=== PATIENT | male | born 1965 | race Caucasian/White ===

== ENCOUNTER 2020-01-28 17:07 | Inpatient (IN) | payer OTHER ==
[~2020-01-28] VITALS: Ht 180.3 cm; Wt 81.2 kg
[2020-01-28 17:18] VITALS: BP 142/91
[2020-01-28 17:48] LABS: URINE BILIRUBIN NEGATIVE (Negative); URINE BLOOD NEGATIVE (Negative); URINE CLARITY CLEAR; URINE COLOR YELLOW; URINE GLUCOSE-RANDOM* NEGATIVE (Negative); URINE KETONES NEGATIVE (Negative); URINE LEUKOCYTES-REFLEX NEGATIVE (Negative); URINE NITRITE-REFLEX NEGATIVE (Negative); URINE PROTEIN (DIPSTICK) NEGATIVE (Negative); URINE UROBILINOGEN 0.2 E.U./dl (0.2-1.0)
[2020-01-28 17:51] LABS: AMP/METHAMP Negative (Negative); BARBITURATES Negative (Negative); BENZODIAZEPINES Negative (Negative); COCAINE Negative (Negative); METHADONE Negative (Negative); OPIATES Negative (Negative); PCP Negative (Negative)
[2020-01-28 17:58] LABS: ABSOLUTE NEUTROPHILS 7.2 thou/uL (1.4-8.2); BASOPHILS 0.7 % (0.0-2.0); EOSINOPHILS 1.7 % (0.0-3.0); HEMATOCRIT 38.4 % (42.0-52.0); HEMOGLOBIN 12.8 gm/dL (14.0-18.0); LYMPHOCYTES 25.8 % (24.0-44.0); MCH 29.5 pg (26.0-34.0); MCHC 33.5 g/dL (28.0-37.0); MCV 88.2 fL (80.0-100.0); MONOCYTES 9.1 % (1.0-8.0); PLATELET COUNT 339 thou/uL (150-400); POLYS 62.7 % (36.0-66.0); RBC 4.35 mil/uL (4.50-6.00); RDW 14.9 % (10.5-14.5); WBC 11.4 thou/uL (4.0-11.0)
[2020-01-28 18:06] LABS: ANION GAP 3 mmol/L (7-16); BUN 13 mg/dL (7-18); CALCIUM 8.9 mg/dL (8.5-10.1); CHLORIDE 97 mmol/L (98-107); CO2 31 mmol/L (21-32); CREATININE 0.9 mg/dL (0.7-1.3); GLUCOSE 96 mg/dL (74-106); POTASSIUM 3.8 mmol/L (3.5-5.1); SODIUM 131 mmol/L (136-145)
[2020-01-28 18:16] LABS: ALBUMIN 3.6 g/dL (3.4-5.0); LIPASE 135 U/L (73-393); SGOT 15 U/L (15-37); SGPT 17 U/L (30-65); TOTAL BILIRUBIN 0.3 mg/dL (0.2-1.0); TOTAL PROTEIN 7.5 g/dL (6.4-8.2); TROPONIN-I <0.06 ng/mL (<0.06)
[2020-01-28 20:21] VITALS: BP 139/93
[2020-01-28] MEDS ORDERED: CLONAZEPAM 1 MG1 M1 PO (20:53)
[2020-01-28] MEDS ORDERED: ATIVAN0.5 M1 PO (20:53)
[2020-01-28] MEDS ORDERED: DEPAKOTE SPRIN125 MG PO (20:54)
[2020-01-28] MEDS ORDERED: FOLIC ACID1 MG PO (20:55)
[2020-01-28] MEDS ORDERED: FLONASE 0.05%50 MCG NASAL (20:55)
[2020-01-28] MEDS ORDERED: GERI-TUSSI100 MG/5 M PO (20:57)
[2020-01-28] MEDS ORDERED: LEVETIRACETAM1000 MG PO (20:58)
[2020-01-28] MEDS ORDERED: MILK OF MA400 MG/5 M PO (20:59)
[2020-01-28] MEDS ORDERED: MUCUS ER1200 MG PO (21:00)
[2020-01-28] MEDS ORDERED: MYLANTA MAXIMU355 ML PO (21:01)
[2020-01-28] MEDS ORDERED: SEROQUEL 100 M100 M1 PO (21:02)
[2020-01-28] MEDS ORDERED: OMEPRAZOLE40 MG PO (21:02)
[2020-01-28] MEDS ORDERED: QUETIAPINE FUM200 MG PO (21:03)
[2020-01-28] MEDS ORDERED: VITAMIN B-1100 M2 PO (21:03)
[2020-01-28] MEDS ORDERED: TRAZODONE HCL50 MG PO ×2 (21:04)
[2020-01-28] MEDS ORDERED: SUPER THERAVIT1 EACH PO (21:05)
--- NOTE | 2020-01-29 02:07 | NUR ---
Patient admitted from [facility] ED under the care of Dr. Nix. Patient arrived to the ED from [facility] due to telling his roomate to hang himself, pocketing his medications, being verbally aggressive to staff and peers, presenting as paranoid and labile. Patient has the diagnosis of alcohol induced dementia, adjustment disorder, MDD and anxiety. Patient is currently a DNR status, Regular diet, Allergic to Sulfa. Nurse spoke with patients Dorene SOSA, niece. Verbal consent obtained. Patient has been admitted to facility since 04/2019. Patient had brain surgery 06/2019 due to sustaining subdural hematoma due to a fall which required 2 cristian holes. Niece reported that patient has atrophy to his brain and has been diagnosed with Korsakoff's disease. Niece states that patient was a chronic alcoholic with a history of several falls and has been involved in his care for the last 4-5 years. Reports that patient has a poor relationship with his sisters and last time that he called one "it turned out bad". Recommended that patient not use the phone due to it causing increased anxiety and agitation. Med rec completed and orders obtained for medications from Dr. Nix, as well as admission orders. Patient evaluated by hospitalist, Vladislav, GELACIO. Patient has a medical history of HTN, Anemia, GERD, chronic hematomas, and nystagmus. Once patient arrived to the unit, he was fairly cooperative with security staff being present. Appeared to be agitated that belongings were taken to be locked up. Patient had suspicious affect, labile mood. Patient upset that his room does not have a TV, he does not have a phone, he does not have a menu to call for "room service". Patient offered a box lunch which he became frustrated with. Once he ate one box lunch, he stated that it was good and requested a second one. Patient was compliant with taking HS medication and he was provided a second box lunch. Patient denied pain or discomfort. Alert and oriented to person and time. Denies SI/HI/AH/VH. 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 States that he does not have time to be in a hospital and wants to get back to work. 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 Spoke at lengths about "the farm" and truly believed that is where he came from. Denies knowing why he is in the hospital. States that he is anxious and depressed then gestured around the room. Nurse asked patient to ellaborate. Patient said, "look around me, I have nothing in common with these people". Patient introduced to a couple peers that he may enjoy speaking with, patient stated "I don't like them" then walked off to his room. No s/s of hallucinations present. Some paranoid observed during assessment. Patient continent of bladder. Needed re-directed from the nurses station a couple times and he made sarcastic remarks. No physical or verbal aggression observed. Patient was able to retire to bed at a reasonable hour and appears to be resting well at this time.
--- NOTE | 2020-01-29 10:15 | NUR ---
0700 ASSUMED CARE PF PATIENT, PATIENT AWAKE IN ROOM AT THAT TIME. 0725 PATIENT TO DAYRROM SITTING AT TABLE FOR BREAKFAST. PATIENT REQUEST COFFEE, ENGINEER INTERNSHIP ORIENTED PATIENT TO SELF SERVE COFFEE AREA. PATIENT AMB WITH STEADY GAIT. PATIENT REFUSES BREAKFAST STATES "THIS IS NOT A FARMERS BREAKFAST". PATIENT TO ROOM, BREAKFAST TAKEN TO ROOM AND PATIENT DOES NOT EAT. MEDICATIONS GIVEN WHOLE WITHOUT DIFFICULTIES. PATIENT STATES "I DO NOT KNOW WHY I AM HERE, NO ONE TELLS ME ANYTHING" PATIENT IS ALERT & ORIENTED X2. NO C/O PAIN. PATIENT STATES NO GOAL. PATIENT CONCERN IS THAT HE IS BEING CONTROLLED AND DICTATED. STATES "EVERYONE IS LYING AND DOES NOT KNOW WHAT IS GOING ON". PATIENT IS DELUSIONAL. DENIES SI/HI. ENGINEER INTERNSHIP SPOKE WITH MONICA FROM FACILITY AFTER VERIFYING CODE. CODE WAS GIVEN TO FACILITY BY DPOA AND LATER CONFIRMED WITH DPOA. DPOA ALSO CALLED AND UPDATED GIVEN. WILL CONTINUE TO OBSERVE
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
[2020-01-29 13:26] VITALS: BP 132/91
--- NOTE | 2020-01-29 19:30 | NUR ---
AFTER DINNER PATIENT WALKS TO ROOM WITH 2 BAGS OF POTATOE CHIPS AND DR MONTAGUE EDUCATES PATIENT ON NO FOOD TO THE ROOMS. PATIENT GETS AGITATED AND THROWS CHIPS OVER THE GLASS IN NURSES STATION. PATIENT TO ROOM AND CLOSES DOOR. SENIOR DESIGN ENGINEER IN ROOM TO EXPLAIN ABOUT THE DOOR NEEDING TO REMAIN OPEN. PATIENT DOES NOT RESPOND.
[2020-01-29 19:54] VITALS: BP 115/81
--- NOTE | 2020-01-30 03:47 | NUR ---
patient aox3 confused and forgetful at times. patient was agitated this shift at times.patient encouraged fluids. patient denied all psych issues. patient isolative this shift. fall precaution in place. patient in bed asleep at this time breathing regular and unlaboured.
--- NOTE | 2020-01-30 07:48 | NUR ---
0700 ASSUMED CARE OF PATIENT, PATIENT IN BED SLEEPING AT THAT TIME. 0730 PATIENT JUMPS OUT OF BED YELLING "GET THE FUCK OUT OF HERE". BEAD SUPERVISOR WAS ASSISTING PATIENTS ROOMMATE TO GET CLEANED UP. BEAD SUPERVISOR TELLS PATIENT THAT SOON WE ARE DONE WE WILL GET OUT. PATIENT BACK TO BED AND SITS THERE QUIETLY.
[2020-01-30 08:48] VITALS: BP 144/95
--- NOTE | 2020-01-30 19:24 | NUR ---
Care of patient assumed at 1915. Patient is in his room. Disgruntled and irritable. Demanding to change rooms. Calms quickly and is cooperative with assessment. A/O x4. HS, LS, BS all WNL. Denies pain. Denies SI/HI. Denies delusions. Compliant with HS meds. Irritable each time his room mate wakes up and bed alarm goes off.
--- NOTE | 2020-01-30 21:36 | H ---
[facility] [place] [address] HISTORY AND PHYSICAL Name: AMBER DELGADO Room #: 519A-A ADM IN M.R.#: [id number] Admission: 01/28/20 Attend Phys: Merrill Nix DO Discharge: Date of : 63 Report #: [id number] THIS REPORT FOR: cc: TU - No family physician/PCP FAM - No family physician/PCP Merrill Nix DO ~ CC: Merrill Nix [facility] physician/PCP DATE OF SERVICE: 01/29/2020 INPATIENT PSYCHIATRIC EVALUATION ATTENDING PSYCHIATRIST: Merrill Nix DO CLAM SORTER: Harinder Moran MD ADMITTING DIAGNOSIS: Major neurocognitive disorder due to chronic alcoholism with behavioral disturbance. REASON FOR ADMISSION: Increased agitation and refusing medication, confrontational behavior at care home, and paranoia. HISTORY OF PRESENT ILLNESS: This is a 54-year-old male, this is his first admission to the [facility]. He is referred from care home in [place], [place], called [facility] in [facility]. The care home itself sent us a referral yesterday. Apparently, they have tried to place him through psychiatric care in the last few days without success. The patient has been seen by [facility] provider, so I do not believe he is getting in-person care. Apparently, the patient's troubles began with most recently, with note stated 01/27/2020 where staff reports patient refuse morning medication, nurse attempted to get resident take medications, resident states there is no way in hell you can get him to take those medications. He states you are trying to drug me, so I cannot talk, will be contacting my foot miter operator and this place will be shutdown. The nurses educated him on importance and has continued to refuse medications. Resident got very agitated and want to call his foot miter operator in person, but does not want other people to hear his conversation stating "I know you guys are bugging all my phones." Other recent notes is the patient refusing meds, sleep disruption, again refusing medications, threatening to get his machine shorthand teacher, labile mood. He has made a threat stating that "I want to know who is going to be here, so I can be thinking the ways to deal with them the way they deserve". It sounds like the patient had a fall and subdural hematoma requiring cristian hole with evacuation in [address] [place] [address] HISTORY AND PHYSICAL Name: AMBER DELGADO Room #: 519A-A ADM IN [facility]#: [id number] Admission: 01/28/20 Attend Phys: Merrill Nix, DO Discharge: Date of : 63 Report #: [id number] 04/2019 and 05/2019, and then was sent to a nursing facility after that. There is a small subdural, which appears to be chronic on CT scan. Dr. Steiner had looked to it in the ER at the request of the ER licensed veterinary technician. The patient states, according to records, he was born in [place], [place], grew up in [place] and moved to [place], graduated high school. 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 He had a brief marriage in the mid 80s. The patient has had past history of depression, substance use disorder for alcohol, anxiety disorder. Apparently, he has not been drinking since he had his fall and subdural hematoma. The provider has been seen in the care home with Dorene Collins. Looks like his last visit was around 01/17/2020. There was a note dated 01/17/2020. The patient has been more aggressive lately requiring breakthrough Ativan. She had recommended 3 times a day Ativan. PCP has made recommendation for stopping Depakote due to possible cause of hyponatremia. Today, resident was resting in bed, talked for a while regarding this. He apparently you know he said he gets along with everyone and states that sometimes he is joking, he gets taken a long way. Apparently, he was moved to an Open and Lock Unit as the heavily demented patient were bothering him. He has been asking ways to elope, told them he had been kidnapped and complained a lot about his roommate, who staff reported is quite pleasant man. It looks like back in December, Telemedicine provider recommended trazodone 25 mg daily around 4:00 p.m. and 50 mg at bedtime. He has been refusing to let housekeeping stain off the wall from another patient urine. MEDICATIONS: In the facility will need to review them on the MR: Ativan 0.5 mg every 8 hours as needed for breakthrough agitation, clonazepam 1 mg by mouth 2 times a day for unspecified dementia, Depakote Sprinkles 125 mg 3 times a day, Flonase spray p.r.n., Keppra 1000 mg b.i.d., omeprazole, Seroquel 100 mg by mouth 2 times a day due to persistent psychosis and 200 mg at bedtime. He is getting thiamine. He is getting a couple other PRNs. ALLERGIES: SULFA DRUGS CAUSES VOMITING. 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 Drinks alcohol at the end of the day. He reported to me he was impotent due to Mumps as a child. He stated he gave away all documents to his niece Dorene. He states Shanon Reyes , not his niece, Dorene is his actual DPOA, so I have to sort that out LABORATORY DATA: Labs from here [facility], white count 11.4, H and H 12.8 and 38.4, platelet count 339. Chemistry: Sodium 131, potassium 3.8, chloride 97, bicarbonate 31, anion gap 3, BUN 13, creatinine 0.9, estimated GFR 88, glucose 96, calcium 8.9, total bilirubin 0.3, AST 16, ALT 17, alkaline phosphatase 102, ammonia level was 18 done this morning, troponin less than 0.06, total protein 7.5, albumin 3.6, lipase 135. Urinalysis was negative. [address] [address] HISTORY AND PHYSICAL Name: AMBER DELGADO Room #: 519A-A ADM IN M.R.#: [id number] Admission: 01/28/20 Attend Phys: Merrill Nix, DO Discharge: Date of : 63 Report #: [id number] Toxicology, alcohol less than 10. Urine drug screen was negative. Marijuana was negative. Head CT done in the ED showed bilateral bur holes in place. There is a small 3 mm evolving or chronic subdural hematomas felt present by the radiologist, volume loss with scattered periventricular microvascular ischemia. Followup CT is recommended, I will defer on that today. REVIEW OF SYSTEMS: We will use the one from the ER yesterday: CONSTITUTIONAL: Denies fever, chills, change in appetite, diaphoresis, weakness. Weight 78.93 kg, BMI 25.4. EYES: Denies visual change, blurred vision, decreased acuity, discharge, or double vision. HENT: Denies congestion, headache, dizziness, difficulty swallowing. Denies discharge, rhinorrhea or sore throat. RESPIRATORY: Denies cough, shortness of breath especially with exertion. CARDIOVASCULAR: He denies chest pain. Denies palpitations. Denies edema. Denies irregular heart rate, lightheadedness, orthopnea, shortness of breath or syncope. GASTROINTESTINAL: Denies abdominal pain, vomiting or diarrhea, poor appetite. GENITOURINARY: Denies hematuria, incontinence, pain, or frequency. MUSCULOSKELETAL: Denies back pain, muscle pain, joint pain, joint swelling, edema, leg pain, myalgias, neck pain. SKIN: Denies rash, bruising, abrasion, lacerations. NEUROLOGIC: Denies numbness, tingling or weakness, dizziness, headache, loss of consciousness, paresthesias, syncope, tremors. PSYCHIATRIC: As stated above in HPI. ENDOCRINE: No symptoms reported. HEMO AND LYMP: Denied. A 10-point review of systems otherwise negative in the ER. Labs and radiology already reviewed. PHYSICAL EXAMINATION: VITAL SIGNS: Today, temperature 36.6, pulse 75, respirations 18, BP 139/93, O2 sat 99%. MUSCULOSKELETAL: Normal gait and station. The patient has poor dentition, wearing jeans and T-shirt. MENTAL STATUS EXAMINATION: This is a well-developed, fairly nourished male, appearing older than stated age. Attention limited. Concentration limited. Speech: Normal rate and tone. Thought Process: Linear and goal directed. Thought Content: Focused on not living in a care home and not having Dorene DPOA. Has psychomotor agitation and has some psychomotor retardation. Denied suicidal or homicidal ideation, auditory, visual, or tactile hallucinations. Denied nightmares or flashbacks. [facility] [address] [place] [address] HISTORY AND PHYSICAL Name: AMBER DELGADO Room #: 519A-A ADM IN [facility].#: [id number] Admission: 01/28/20 Attend Phys: Merrill DanialSangeeta Nix, DO Discharge: Date of : 63 Report #: [id number] Mental Status examination was performed, score was 20/30. He has only one correct out of 3 orientation questions, 3/3 on the money management question, 3/3 on the verbal fluency, 3/5 on 5-item recall, 2/2 for reverse digit span, 2/4 for clock drawing, 2/2 on visual spatial, 4/8. Insight limited. Judgment limited. Fund of knowledge below average. FORMULATION: A 54-year-old male sent from the [facility] in [place] for medication noncompliance, paranoia, agitation, major neurocognitive disorder due likely to long-term effects of alcoholism as well as traumatic brain injury with behavioral disturbance. MEDICAL COMORBIDITIES: Include the following, history of folate and thiamine deficiency, history not well documented, Wernicke-Korsakoff psychosis, seizure disorder, unclear degree gastroesophageal reflux disease, subdural hemorrhage, hypertension, history of tobaccoism. I am unclear if he is smoking at care home. The patient is a DNR. PLAN: Evaluate, stabilize, obtain collateral. With regard to his current medications, I made a couple changes already so thiamine 100 mg a day for supplementation, Seroquel increased to 150 mg at 9:00 a.m. and 3:00 p.m. He is on folic acid, multivitamin, Protonix 40 mg daily as needed, Seroquel increased to 250 mg, Keppra to 1000 p.o. b.i.d., Depakote I increased from 125 t.i.d. to 275 t.i.d., we will do level in several days; his clonazepam 0.5 mg p.o. b.i.d., but plan to discontinue that in another day or so if I do not think it is good given his dementia. Time spent on interview, evaluation, review of records is at least 60 minutes, greater than 50% of time spent on counseling and coordination of care. STRENGTHS: He is insured. He has a DPOA. He has a placement. WEAKNESSES: Dementia at a young age with poor insight, poor dentition. <ELECTRONICALLY SIGNED> By: Merrill Nix DO 01/30/20 [id number] Merrill Nix DO /nt
[2020-01-31 06:26] LABS: HEMOGLOBIN 13.5 gm/dL (14.0-18.0); MCH 29.6 pg (26.0-34.0); MCHC 32.9 g/dL (28.0-37.0); RBC 4.55 mil/uL (4.50-6.00); RDW 15.3 % (10.5-14.5); WBC 10.6 thou/uL (4.0-11.0)
[2020-01-31 06:43] LABS: CALCIUM 8.8 mg/dL (8.5-10.1); CREATININE 0.9 mg/dL (0.7-1.3); MAGNESIUM 2.1 mg/dL (1.8-2.4); POTASSIUM 3.9 mmol/L (3.5-5.1)
[2020-01-31 07:47] VITALS: BP 136/96
--- NOTE | 2020-01-31 10:04 | NUR ---
0700 ASSUMED CARE OF PATIENT, PATIENT ASLEEP IN BED AT THAT TIME. PATIENT OUT TO DAYROOM FOR BREAKFAST. DENIES SI/HI, NO C/O PAIN. PATIENT UPSET DUE TO CURRENT DPOA ON FILE FOR HIM. PATIENT CONTINUES TO WRITE NOTES IN REGARDS TO WHOM TO CONTACT FOR VERIFICATION OF HIS TRUE DPOA. PATIENT RETURNS TO ROOM AFTER MEALS FOR HE FEELS HE DOES NOT BELONG AROUND THE OTHER PATIENTS. MEDICATION TAKEN WHOLE, PRINT ROOM WORKER CONTINUED TO ASK QUESTIONS AND NOTICED HE HAD NOT SWALLOWED ALL MEDDS. PRINT ROOM WORKER ASKS PT TO PLEASE FINISH SWALLOWING MEDS AND PATIENT COMPLIES. PATIENT TO NURSES STATION SEVERAL TIME THIS AM REGARDING HIS DPOA. PRINT ROOM WORKER ASSURED PATIENT THAT SW AND WOULD ADDRESS THIS MATTER. WILL CONTINUE TO OBSERVE
--- NOTE | 2020-01-31 13:31 | NUR ---
FRED and Dr. Nix received a call from Edith Dyer with [facility] office at [phone]. She is involved at pt's wishes. She gave background hx on the facility. She also stated her first known documentation that suggests pt's dx is dementia occurred in 05/2019. FRED reviewed pt's DPOA docs and saw the last revision he made before 05/2019 is in February 22 2019 in which he lists Edinson Dawn as 1st DPOA, Dorene Aleman as 2nd DPOA, and Merrilldede Dawn as 3rd. FRED asked Edith if she had either a phone number for Edinson or a letter from him stating he rescinds his position as DPOA; she did not have either. She did give her email of . FRED sent an email to Edith with her contact information. FRED contacted [facility] at [phone] and spoke to Geovanna and Surinder. FRED asked if Jazmin is indeed an admin of the facility and was told she is, but is on leave at the moment and is in the process of being terminated. FRED provided an update that Jazmin has contacted [facility] staff asking for reports about pt and spoke to the doctor about pt. Surinder advised that the unit place a restriction that even staff are to provide pt's 4 digit code to receive any information. They were given this code by Dorene. Surinder gave FRED the fax number of [phone] to fax updates. Geovanna contacted with a phone number for Edinson of [phone]. FRED contacted Edinson. He confirmed that he would prefer Dorene to be DPOA as he does not want the responsibility. He said he provided [facility] a document stating such. He will fax this to when he finds the document.
--- NOTE | 2020-01-31 18:39 | NUR ---
PATIENT SPOKE WITH HIS SISTER JANEE Wilkinson PHONE # [phone] THIS EVENING. PATIENT STATES "SHE WILL GET THE BALL ROLLING, WE JUST NEED A OUTSIDE SOURCE TO DO THAT". PATIENT CONTINUES TO COMMENT "JACQUELINE IS NOT MY DPOA THAT WAS DESOLVED". WILL CONTINUE TO OBSERVE.
[2020-01-31 19:59] VITALS: BP 148/96
[2020-01-31 22:00] VITALS: BP 148/96
--- NOTE | 2020-02-01 00:14 | NUR ---
Assumed care of patient this pm shift. Patient in good spirits sitting in the mileu with peers. Patient is alert and oriented x3. Patient denies pain. Patient denies hi/si. Patient can take medications whole but declined them this evening stating that he is afraid of side effects. Patient is ambulatory and walks with an even gait. Patient is a falls risk and has a yellow shirt on. Patients affect is suspicious. Patients assessment shows clear breath sounds, active bowel sounds, and s1 s2 heard with auscultation. We will continue to monitor patient per hospital protocol.
[2020-02-01 08:53] VITALS: BP 132/86
--- NOTE | 2020-02-01 10:43 | NUR ---
0700 ASSUMED CARE OF PATIENT, PATIENT IN BED SLEEPING AT THAT TIME. PATIENT AMB WITH STEADY GAIT TO DAYROOM FOR BREAKFAST THE RETURN TO ROOM. MEDICATION TAKEN WHOLE, WHEN MEDICAL CENTER DIRECTOR ASKS PATIENT TO OPEN MOUTH MEDICAL CENTER DIRECTOR OBSERVED PATIENT CHEEKING MEDS. MEDICAL CENTER DIRECTOR ASKED PATIENT TO PLEASE SWALLOW AND AFTER PATIENT COMPLAINED AND ARGUED PATIENT SWALLOWED MEDICATION AFTER 4 TIMES OF OBSERVING FOR MEDS IN PATIENTS MOUTH. MEDICATION WAS FOUND IN PATIENTS BED YESTERDAY BY STAFF. PATIENT REMAINS IN BED WITH EYES CLOSED. WILL CONTINUE TO OBSERVE.
--- NOTE | 2020-02-01 11:05 | NUR ---
RECIEVED CALL FROM HARMEET LAMINE [phone]. EMERGENCY TECHNICIAN DID NOT GIVE ANY INFO REGARDING PATIENT. HARMEET STATED "I WAS NOTIFIED BY AMBER'S SISTER THAT AMBER TOLD HER TO CALL ME AND HELP GET HIM OUT". "I AM THE DPOA, THERE IS SOMEONE ELSE CURRENTLY DPOA AND WE ARE CURRENTLY FIGHTING TO GET THAT DPOA REMOVED". EMERGENCY TECHNICIAN ASKED, YOU ARE NOT THE DPOA? HARMEET STATED "NO, NOT YET". EMERGENCY TECHNICIAN ENDED THE CONVERSATION AGAIN EXPLAINING, DUE TO HIPPA I CAN NOT DISCUSS ANYTHING REGARDING THE PATIENT.
--- NOTE | 2020-02-01 12:01 | NUR ---
FRED provided Dorene an update on pt. She has requested that pt be put on a no phone restriction. FRED relayed this information to Dr. Villegas who said he will put this order in. FRED updated pt's nursing staff. FRED team will continue to follow pt during his stay on this unit.
--- NOTE | 2020-02-01 14:57 | NUR ---
PATIENTS DOOR CLOSED, AMMONIA WORKER ASKED PATIENT TO PLEASE NOT SHUT DOOR. PATIENT RESPONDS WITH " I CAN DO WHAT I WANT". PATIENT TAKES MEDICATION AND SWALLOWS MEDS NO CHEEKING NOTED. ONE MINUTE AFTER TALKING TO PATIENT , PATIENT SHUTS DOOR AGAIN. PATIENT YELLS STATING "I DO NOT WANT TO LISTEN TO THAT YELLING" (OF ANOTHER PATIENT). AMMONIA WORKER EXPLAINED TO PATIENT DOORS CAN NOT BE CLOSED. PATIENT STATES "MY MICROCHIP SPECIALIST WILL FIX THIS, AND YOUR ON THE LIST". WILL CONTINUE TO OBSERVE.
[2020-02-01 20:34] VITALS: BP 119/85
--- NOTE | 2020-02-02 05:19 | NUR ---
02-01-20 CARE TRANSFERED 1914. 1929 PT SITTING ON BED WITH EYES OPEN, PT AAOX3, SKIN W/D, VSS, RR EVEN AND NONLABORED ON RA; PT PRESENTED ANGRY BUT WAS COOPERATIVE DURING NURSING ASSESSMENT. DURING MEDICATION ADMIN, PT BED WAS REPOSITION TO HIGH FOWLERS POSITION PT WAS PRESENTED ANGRY BUT BECAME AGITAGED AND SPEAKING ANGRY ABOUT HOW HE DOES NOT NEED THESE MEDICATION, EACH MEDICATION WAS REVIEWED AND DISCUSSED THE BENEFITS, PT THEN STATED "you people are trying to kill me, I only will take medication from my [place] pharmacist, I don't trust anyone here. Medication have adverse effects." WHEN REJUSTING BED FOR PT COMFORT PT STATED "just leave it alone, I don't need your help." 2334 PT CAME OUT AND REQUESTED HIS PAPERS BE STAPLED AND DENTAL INTERN INFORMED PT THAT WE COULD NOT DO THIS, PT STATED "I am going to nam this place and all of you." NOTED PT RETURNED TO ROOM. APPROXIMATELY 0000 DURING NURSING ROUNDS NOTED PT EYES OPEN, AND ASKED IF HE WOULD LIKE BED READJUSTED, PT ALLOWED SLIGHT ADJUSTMENT. ZERO S/S OF ACUTE EMOTIONAL AND MEDICAL DISTRESS THROUGHOUT NURSING ROUNDS. WILL CONTINUE TO MONITOR PER [facility] PROT[facility].
--- NOTE | 2020-02-02 10:32 | NUR ---
Assumed care 0700. 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 Ediphone Operator returned belen's call. She reported patient is a hoarder of linens, papers, and other objects. he has lived [facility]. Niece says he is not a stallings and suggests just redirect him off the subject and not confront him or deny his story as he gets really agitated.
[2020-02-02 17:13] VITALS: BP 131/92
--- NOTE | 2020-02-02 17:50 | NUR ---
Pt. was med compliant with nurse checking his mouth after each med pass and following him to outside the bathroom door to listen for any wretching. None discovered. He is delusional/confabulational with telling this nurse that he had to be discharged to go home to cut his wheat. He was disappointed that noone here was able to talk with him about the wheat futures. He was afraid that the [place] would be flooded with water and be ruined as the wheat crop was his income. His DPOA Dorene clarified that he was not a stallings, that he has lived in a skilled nursing since last fall. He is requesting a list of his medications to show his motion designer as he says each med has its side effects and he doesn't want his personality changed.
--- NOTE | 2020-02-02 18:00 | NUR ---
Patient requested and was seen by the hospital stone rubber this afternoon. He did not attend groups-does not see any value in attending groups.
--- NOTE | 2020-02-02 19:24 | NUR ---
Care of patient assumed at 1915. Patient is asleep in bed at this time. Patient awakens at 2030 and is cooperative with assessment. A/O x 3. Denies pain, concerns, or new goals. Still wants to discharge. 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 HS, LS, BS all WNL for patient. Reports LBM today. Compliant with HS meds. Asleep shortly after meds administered.
[2020-02-02 20:33] VITALS: BP 107/71
[2020-02-03 07:53] VITALS: BP 113/66
--- NOTE | 2020-02-03 09:45 | NUR ---
Assumed care 0700. Patient was called into dayroom for breakfast x 3, continued to want to stay in bed. Says he can't sleep due to roommate getting up during the night with the bed alarm going off. Again patient was encouraged to let night staff know when he was not alseep as they report he slept 11 hours last night. He came out for late breakfast. Food was reheated. He tends to want to be an adversary with authority figures. 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 He continues to deny that Dorene glover is his DPOA. He defies unit rules and has been requested not to bring coffee into his room, to drink it in the dayroom.
--- NOTE | 2020-02-03 18:30 | NUR ---
Due to patient having a history of spitting out his pills he was requested to use the toilet before getting his AM meds which he did and was evidenced by urine and toilet paper in the toilet unflushed. He was given pears to eat prior to his meds which he took with a comment about his concerns that his meds were poison, would change his personality, and that he cared for his mother and it took a long time to get her meds right. He does not specifiy what he perceives are any deleterious efects from his current meds. Right after he took his meds this adjusto writer operator was talking to a doctor out in the downing and the patient swiftly went into the bathroom and flushed the toilet. It is believed that he coughed up his pills as less than 5 minutes before he had urinated in the toilet. His medical doctor was advised of this and the med student for psychiatry was also informed. The patient became quite angry stating he did not flush meds down toilet and that his test developer would be notified. He did come out of room for lunch and dinner. After dinner he was observed getting ice cream out of the freezer. He was requested to ask staff for such snacks. He became angry stating that our conversation was being recorded and his test developer would be notified. This adjusto writer operator spoke with Dorene SOSA who says there should be noone calling him and that she is the only one he should be talking to on the phone. He is not to be calling out on the phone.
--- NOTE | 2020-02-03 19:24 | NUR ---
Care of patient assumed at 1915. Patient is laying in bed. Calm, pleasant, and cooperative upon approach. 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 Denies pain. Denies SI/HI. Denies needs or concerns. States his only goal is to go home. Compliant with HS meds. Sleeping shortly after.
[2020-02-03 19:37] VITALS: BP 112/70
[2020-02-04 06:38] VITALS: BP 99/65
[2020-02-04 08:00] VITALS: BP 99/65
--- NOTE | 2020-02-04 09:05 | NUR ---
FRED received a vm from [place] asking for an update. FRED returned her call. No answer. FRED left [facility]. FRED will continue to follow pt during his stay on this unit.
--- NOTE | 2020-02-04 10:30 | NUR ---
Assumed care 0700. Returned Dorene's call earlier before this nurse could start her meds. Update given. Erick was allowed to sleep longer. For the third day in a row he was informed that he should wave at staff when they came in to check on him. He claims roommate keeps him awake with his bed alarm going off periodically during thenight.
--- NOTE | 2020-02-04 18:30 | NUR ---
Says he looks out the to cope with the milieu noise of various patients screaming without cause. He has been told that if he refuses or spits out certain medication he will be given an injection. Some conversation of possible discharge next week if behavior is appropriate, and is med compliant. Dorene IAN was given that information in second conversation today. Also informed that yes he was hoarding food, sugars, silverware in the side table. Items removed and trashed. Patient reminded that he was not to bring any food stuffs into his room. For the third day in a row he has asked if the structure he sees in the distance is [employer]? He was informed that was a [employer] business. 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 In 99% of conversations withthis nurse patient has been hostile, litigenous threatening for no reason, angry, unhappy. He believes meds are poisoning him and fears side effects. DPKARMA and patient were informed tht all of the staff is observant of all the patients and that staff confers with other patients' nurses if any concerns are observed and those concerns are addressed with the appropriate doctors.
[2020-02-04 20:02] VITALS: BP 120/74
--- NOTE | 2020-02-05 03:06 | NUR ---
Assumed care on 02/04/20 @ 19:15, in bed, awake alert oriented x 3. Not able to name hospital. Cooperated with assessment, HRRR, Lungs CTA, ABD N x 4 q. Reports BM 02/04/20. Itiching healed scar on right arm moisturized with lotion. Compliant with medicaiton. 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 Discussed cattle, crops and water on farm. Reports his only pain is a broken heart. 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 Says I'll never get over that. Sleeping as of this writing, bed in low position, bed alarm set, will continue to monitor.
[2020-02-05 07:35] VITALS: BP 112/67
[2020-02-05 09:54] VITALS: BP 112/67
--- NOTE | 2020-02-05 10:52 | NUR ---
PT WAS IN DAY ROOM WHEN I ARRIVED ON THIS UNIT. Javier LOOKED VERY ANGRY AND INTENSE,WHEN I WENT TO GIVE HIM HIS MEDICATIONS. PT C/O BEING LOCKED UP, DEMANDING A WRITTEN LIST OR EVER MEDICATION HE IS TAKING. Micheal DID MEDICATIONS WITH OUT ANY RESISTANCE THIS AM. LUNGS CLEAR , X2, PEDAL PULSE STRONG, BOWEL SOUND ACTIVE AND LAST BM WAS THIS AM . PT REPORTED LG FORMED BM. MICHEAL STAYS IN DAY ROOM FOR MOST OF THE DAY , BUT DOES NOT PARTICIPATE IN GROUP. MICHEAL'S POWER OF CATERPILLAR OPERATOR CALLED AND WOULD LIKE TO SPEAK TO HIS SOICAL WORKER WHEN POSSIBLE, REGARDING PLAN OF CARE.
--- NOTE | 2020-02-05 11:49 | NUR ---
SW spoke to pt's belen Catherine who requested an update on patient's care plan. SW reviewed notes and provided update.
--- NOTE | 2020-02-05 19:18 | NUR ---
Care of patient assumed at 1914. Patient sitting at a table in the day room. Pleasant upon approach. 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 Denies pain. Denies SI/HI. No concerns stated. States his only goal is to be discharged and go back to the farm. HS, LS, BS all normal for patient. Compliant with HS meds. 30 minutes after taking meds, patient reports heartburn. Mag hydroxide given. Patient retires to bed at 2229.
[2020-02-05 19:55] VITALS: BP 117/81
[2020-02-06 09:05] VITALS: BP 133/90
--- NOTE | 2020-02-06 12:58 | NUR ---
PATIENT COMPLIANT WITH MEDICATION BUT RELUCTANT TO TAKE. WAS IRRITATED STATING THAT THEY KEPT HIM AWAKE ALL NIGHT. PATIENT HAS GOOD APPETITE. AMBULATES INDEPENDENTLY. MAKES NEEDS KNOWN. SOCIAL WITH PEERS DENIES S/I OR H/I - PLEASED TO DISCHARGE TOMORROW BUT NOT HAPPY WHERE HE IS GOING. PATIENT CARETAKING OF FEMALE PEERS.
--- NOTE | 2020-02-06 19:15 | NUR ---
Care of patient assumed at 191. Patient is sitting in day room conversing with a peer. Pleasant and cooperative upon approach. A/O x 4. 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 Denies pain. Concern and goal revolve around getting back to the farm. HS, LS, BS all WNL. Reports last BM today. Compliant with HS meds, then reitres to bed at 0. DPOA called to check on patient. Unsure of planned discharge date, assuming it will be decided tomorrow based on medication compliance over the weekend.
[2020-02-06 19:30] VITALS: BP 128/83
[2020-02-07 07:46] VITALS: BP 94/68
[2020-02-07 08:20] VITALS: BP 94/68
--- NOTE | 2020-02-07 08:26 | NUR ---
PT UP IN DINING ROOM. PT LUNGS CLEAR. PT DENIES ANY PAIN. PT TOOK MEDS THIS AM WITHOUT ANY ISSUES. PT LBM 02/05. NO SIGNS OF IRRITATION FROM THE PATIENT. PT STILL TALKING ABOUT WORKING ON THE FARM.
--- NOTE | 2020-02-07 15:14 | NUR ---
Nutrition: Assessed due to LOS. Pt admit to [facility] unit with AMS, aggressive behavior at MO. Eating 100% of most meals on regular diet. Good appetite per nsg notes. Last BM 02/05. Meds include MVI, folic acid, thiamine. PMH: ETOH, depression, substance abuse, SDH. Some minor weight fluctuations, will follow trends. Noted pt is a possible discharge today if he can be compliant with his medications. Consider low nutrition risk.
--- NOTE | 2020-02-07 19:18 | NUR ---
Care of patient assumed at 1915. Patient is sitting in day room at a table conversing with a peer. Pleasant and cooperative with assessment. Denies pain. A/O x 4. 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 HS, LS, BS all WNL. Compliant with HS meds. Goes to bed shortly after, only to come back out demanding his phone so that he can call for a ride in the morning. It is explained to patient that the discharge plan is for him to return to [place], and that transportation will be arranged. Patient goes on at length about how he is "being screwed" and that his niece is not his DPOA. He states he can prove it, but "we" won't let him as he cannot use the phone except for calls to/from DPOA. This nurse informs patient that 2200 is not the appropriate time to be addressing these concerns and that he needs to be bringing these concerns up when the doctor and social and political studies professor are here, as he is demanding that the windows architect he insists signed the orders rescinding the DPOA is not reachable at 2200. able to be contacted
[2020-02-07 19:52] VITALS: BP 131/88
[2020-02-08 08:30] VITALS: BP 123/89
--- NOTE | 2020-02-08 08:34 | NUR ---
PT IN DINING ROOM. PT DENIES ANY PAIN. PT ORIENTED TO SELF AND PLACE. 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 PT HAS FARM IN [place]. PT GOING TO DISCHARGE TODAY. PT HAS A COUGH WITHOUT SPUTUM. PT STATED HE HAS THICKENS TO BACK OF HIS THROAT. PT DRINKING COFFEE. PT ABD IS ROUND, HE STATED HE IS NOT ON FARM WALKING AROUND AND GAINED WEIGHT.
[2020-02-08 08:36] VITALS: BP 123/89
--- NOTE | 2020-02-08 09:32 | NUR ---
On 02/07/20 FRED received multiple messages from Dorene stating she has concerns about pt discharging from the hospital on 02/07/20. FRED provided an update which included pt having appropriate social behaviors and medication compliance. FRED discussed Dorene's expectation for hospitalization as it relates to pt's level of functioning. Dorene was not pleased with this explanation. FRED arranged for Dorene to speak to Dr. Nix who his clinical justification for discharge. Dorene reluctantly accepted this information. FRED arranged for Katarina with [facility] to speak to Dr. Nix regarding pt's discharge. Katarina stated they can pick patient up at 10:30 am on 02/08/20. Treatment team was notified.
--- NOTE | 2020-02-08 09:54 | NUR ---
FRED received a call from Katarina with [facility] requesting an update since yesterday. FRED provided updated via medical record and informed her his discharge summary would be faxed once it was completed. It will also be sent with pt. Pt will discharge today at 10:30 am. [facility] is providing transportation. Katarina was instructed to have her staff call the nurses station when they arrive. Nursing staff will bring pt to their vehicle.
[2020-02-08] MEDS ORDERED: DEPAKOTE SPRIN125 MG PO (10:10)
[2020-02-08] MEDS ORDERED: SEROQUEL 100 M100 MG PO ×2 (10:11→10:12)
[2020-02-08] MEDS ORDERED: PROTONIX40 M1 PO (10:12)
--- NOTE | 2020-02-08 11:00 | NUR ---
PT TOOK SHOWER GETTING READY TO DISCHARGE. 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 PT STATED HE WAS GOING TO KEEP HIS OPINIONS TO HIMSELF. PT REFUSED TO FILL OUT SURVEY. PT HAS BEEN DRINKING COFFEE. GAIT IS STEADY.
--- NOTE | 2020-02-08 11:38 | NUR ---
PT DID COMMENT TO NURSE THAT WHEN HE GETS HOME HE WOULD LIKE TO SIT ON HIS PORCH AND HAVE A BEER AND A CIG.
--- NOTE | 2020-02-08 11:47 | NUR ---
PT LEFT VIA AMBULATION TO CAR. PT VOIDED BEFORE HE LEFT FOR THE 2 HOUR RIDE.
--- NOTE | 2020-02-08 12:05 | NUR ---
GAVE REPORT TO JOSE EDUARDO BEE AT [facility].
--- NOTE | 2020-02-08 12:14 | NUR ---
[facility]
== END 2020-02-08 11:37 | DRG 884 ==
LOC: ER 17:07 → SBH 19:53
PROVIDERS: Internal Medicine; Physician Assistant; ADMIT Psychiatry & Neurology Psychiatry; ATTEND Psychiatry & Neurology Psychiatry
DX: F01.51 Vascular dementia, unspecified severity, with behavioral disturbance (principal); F04 Amnestic disorder due to known physiological condition; F10.20 Alcohol dependence, uncomplicated; K21.9 Gastro-esophageal reflux disease without esophagitis; I10 Essential (primary) hypertension; F32.9 Major depressive disorder, single episode, unspecified; F41.9 Anxiety disorder, unspecified; G40.909 Epilepsy, unspecified, not intractable, without status epilepticus; Z66 Do not resuscitate; Z88.2 Allergy status to sulfonamides; Z88.5 Allergy status to narcotic agent; Z87.891 Personal history of nicotine dependence; Z87.820 Personal history of traumatic brain injury; Z79.899 Other long term (current) drug therapy
CPT/HCPCS: 10880